=== PATIENT | female | born 1985 | race Caucasian/White ===

== ENCOUNTER 2016-10-21 17:25 | Emergency (ER) | payer SELFPAY ==
[2016-10-21 17:35] VITALS: BP 123/60; PULSE 90; RESP 20; TEMP 97.8; O2SAT 98
[2016-10-21] MEDS ORDERED: Naproxen 500 MG TAB PO ONE ×2 (17:40→18:08)
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
--- NOTE | 2016-10-22 10:51 | RAD ---
PROCEDURE: Left Knee Radiographs. HISTORY: Pain. COMPARISON: None. FINDINGS: BONES: Three views were obtained. No fracture is seen. No lytic process is noted. JOINTS: Mild degenerative changes are seen in the medial compartment and patellofemoral region. JOINT EFFUSION: None. OTHER FINDINGS: No chondrocalcinosis is seen. IMPRESSION: Mild degenerative changes. No fracture.
== END 2016-10-21 19:02 | disposition home or self-care (01) ==
LOC: H.ER 17:25
DX: M25.561 Pain in right knee (principal)

== ENCOUNTER 2017-07-13 10:58 | Inpatient (IN) | payer MEDICAID, OTHER ==
[2017-07-13 12:21] VITALS: BMI 54.8
[2017-07-13] MEDS ORDERED: Oxytocin 30 units/LR 500ML 30 UNIT/500 ML BAG IV SCH ×2 (12:30→16:35)
[2017-07-13] MEDS: Lactated Ringer's 1,000 ML IV SCH ×2 (12:45→13:45)
[2017-07-13] MEDS ORDERED: ePHEDrine 50 mg/ml Inj ONE (12:53)
[2017-07-13 13:03] LABS: BASO # 0.1 K/uL (0.0-0.2); BASO % 0.7 % (0.0-2.0); EOS # 0.1 K/uL (0.0-0.7); EOS % 0.7 % (0.0-4.0); HEMATOCRIT 37.3 % (34.0-47.0); LYMPH # 1.9 K/uL (1.0-4.3); LYMPH % 15.4 % (20.0-40.0); MEAN CELL VOLUME 85.2 fl (81.0-99.0); MEAN CORPUSCULAR HEMOGLOBIN 27.7 pg (27.0-31.0); MEAN CORPUSCULAR HGB CONC 32.6 g/dL (33.0-37.0); MONO # 0.7 K/uL (0.0-0.8); MONO % 5.4 % (0.0-10.0); NEUT # 9.4 K/uL (1.8-7.0); NEUT % 77.8 % (50.0-75.0); NRBC % 0.1 % (0.0-0.0); RED CELL DISTRIBUTION WIDTH 14.5 % (11.5-14.5); WHITE BLOOD COUNT 12.1 K/uL (4.8-10.8)
[2017-07-13 13:09] LABS: BILIRUBIN,TOTAL 0.8 mg/dl (0.2-1.3); CARBON DIOXIDE 22 mmol/L (22-30); CHLORIDE 106 mmol/L (98-107); GFR AFRICAN-AMERICAN > 60; GLUCOSE,RANDOM 85 mg/dL (65-105); SODIUM 139 mmol/l (132-148)
[2017-07-13 13:17] LABS: ALB/GLOB RATIO 0.9 (1.0-2.1); ALKALINE PHOSPHATASE 186 U/L (38-126); ALT/SGPT 59 U/L (9-52); AST/SGOT 64 U/L (14-36); BLOOD UREA NITROGEN 11 mg/dl (7-17); POTASSIUM 4.8 MMOL/L (3.6-5.0); TOTAL PROTEIN 7.9 G/DL (6.3-8.2)
[2017-07-13] MEDS ORDERED: Morphine 1 mg/ml preservative-free Inj(Duramorph) ONE (13:36)
[2017-07-13] MEDS ORDERED: Bupivacaine HCl/Epi 0.5% 1:20000 30 ML SOL IJ ONE (15:49)
[2017-07-13] MEDS ORDERED: Oxycodone/Acetaminophen 5/325 mg Tab PO PRN ×4 (16:15→20:10)
[2017-07-13] MEDS ORDERED: ceFAZolin IV 2 gm in Dextrose 2 GM/50 ML BAG IVPB ONE ×2 (17:00→20:10)
[2017-07-14 07:45] LABS: HEMATOCRIT 31.3 % (34.0-47.0); MEAN CELL VOLUME 84.9 fl (81.0-99.0); MEAN CORPUSCULAR HEMOGLOBIN 27.8 pg (27.0-31.0); MEAN CORPUSCULAR HGB CONC 32.8 g/dL (33.0-37.0); RED CELL DISTRIBUTION WIDTH 14.8 % (11.5-14.5)
--- NOTE | 2017-07-14 08:01 | OBADHP ---
Datetime: 07/13/2017 12:19 Admit Comment, IP Provider: 32 y/o F at 38.4 weeks GA by 3rd trimester US, presenting with uterine CTX that began this morning while taking a shower. Contraction are very painful, every _5 mi ns and increasing in intensity rapidly. NO LOF or vaginal bleeding. LMP 11/19/16. Pt started PNC on 0 04/24/17 at _25 weeks GA. Pt denies fever, headache, CP, SOB, urinary complaints or visual disturbance s. NKDA OBHx: 3 C/S, 2 induced abortions and 1 spontaneous abortions. PMHx: Obesity. PSHx: C/S x3, Cholecystectomy. FHx: NC SHx: No tobacco, alcohol or rec drugs. A/P: 32 y/o F w/ IUP at 38.4 weeks GA. -Admit to L_D unit. -NPO -Initiate protocol. Case discussed with Dr Gay, OB manager environmental health and safety Lee PGY-1 Extremities - PN: Normal Back - PN: Normal Breast - PN: Normal Lungs - PN: Normal Heart - PN: Normal Thyroid - PN: Normal Neurologic - PN: Normal HEENT - PN: Normal General - PN: Normal FHR - Baseline A Provider: 140 Membranes, Provider: Intact Gestation - Est Wks by US: 38.4 Pool Provider: Negative IP Chief Complaint: Uterine contractions NICHD Variability Prov Fetus A: Moderate 6-25bpm NICHD Accel Fetus A IP Provider: [id number] FHR Category Provider Fetus A: Category I Dilatation, Provider: 0 Effacement, Provider: 0 Genitourinary Exam: Normal DTRs - PN: Normal EGA AdmitDate IP: 38.4 IP Adm Impression: Term, intrauterine IP Admit Plan: Admit to unit; Observation/Evaluation
--- NOTE | 2017-07-14 08:08 | OBDS ---
DELIVERY PERSONNEL Delivery Doctor: Harjinder Gay MD Scrub Nurse: Deisy Ryan OBT Procurement Analyst: Tameka David RN Anesthesiologist: MD josé miguel Blanket Washer: Varghese Forman MD Resident: MD susan MATERNAL INFORMATION Delivery Anesthesia: Spinal Medications in Delivery: pitocin 30 mu Estimated Blood Loss (ml): 800 Placenta Cultured: No Maternal Complications: None RN Comments: Atraumatic repeat delivery with BTL Viable babyboy noted with lusty cry. nfa nt cared for by Dr. Groves APGARs 8/9 assigned infant tolerated delivery well. Mother tolerated deli very well. BTL completed. Unable to initiate Skin to skin due to abdomen taped over gown making upp er chest area unaccessible. Mother and infant recoverying well. Provider Comments: Low flap transverse section, bilateral tubal ligation. Patient viable infant male with Apgars of 8 and 9 at one and 5 minutes respectively. Normal uterus , normal tubes and ovaries bilaterally. Bilateral tubal ligation via bilateral Raceland procedure. Estimated blood loss 800 mL Fluids 1600 mL lactated Ringer's Urine output 200 mL of clear urine No complications LABOR SUMMARY EDC: 07/23/2017 00:00 No. Babies in Womb: 1 Attempted: No Labor Anesthesia: spinal LABOR INFORMATION Reason for Induction: Not Applicable Onset of Labor: 07/13/2017 09:30 Oxytocin: N/A Group B Beta Strep: Positive Antibiotics # of Doses: 1 Antibiotics Time of Last Dose: 1430 Steroids Given: None Reason Steroids Not Administered: Not Applicable Other Reason Not Administered: not required MEMBRANES Membranes Rupture Method: Spontaneous Rupture of Membranes: 07/13/2017 15:34 Length of Rupture (hrs): 0.02 Amniotic Fluid Color: Clear Amniotic Fluid Amount: Small Amniotic Fluid Odor: None STAGES OF LABOR Stage 3 hrs: 0 Stage 3 min: 1 Total Time in Labor hrs: 6 Total Time in Labor min: 6 CSECTION DELIVERY Primary Indication: > 2 Previous CSections CSection Urgency: Emergency CSection Incidence: Repeat CSection Incision: Lower Uterine Transverse Sterilization Procedure: Sarai BABY A INFORMATION Delivery Date/Time: 07/13/2017 15:35 Method of Delivery: Born in Route : No : N/A Forceps: N/A Vacuum Extraction: N/A Shoulder Dystocia : No SHOULDER DYSTOCIA BABY A Infant Delivery Date/Time: 07/13/2017 15:35 PRESENTATION/POSITION BABY A Presentation: Cephalic Cephalic Presentation: Vertex Vertex Position: Left Occipital Anterior Breech Presentation: N/A PLACENTA INFORMATION BABY A Placenta Delivery Time : 07/13/2017 15:36 Placenta Method of Delivery: Manual Removal Placenta Status: Delivered SCORES BABY A Heart Rate 1 min: >100 bpm Resp Effort 1 min: Good Cry Reflex Irritability 1 min: Cough or Sneeze or Pulls Away Muscle Tone 1 min: Some Flexion of Extremities Color 1 min: Body [place], Extremities Blue Resuscitation Effort 1 min: N/A SCORE 1 MIN: 8 Heart Rate 5 min: >100 bpm Resp Effort 5 min: Good Cry Reflex Irritability 5 min: Cough or Sneeze or Pulls Away Muscle Tone 5 min: Active Motion Color 5 min: Body [place], Extremities Blue Resuscitation Effort 5 min: N/A SCORE 5 MIN: 9 INFORMATION BABY A Gestational Age at Delivery: 38.0 Gestational Status: Term Outcome : Liveborn Infant Condition : Stable Sex: Male IDENTIFICATION/MEDS BABY A ID Band Number: [id number] ID Band Location: Left Leg; Left Arm WEIGHT/LENGTH BABY A Infant Birthweight (gms): 3600 Infant Weight (lb): 7 Infant Weight (oz): 15 CORD INFORMATION BABY A No. Cord Vessels: 3 Nuchal Cord : N/A Cord Blood Taken: No Infant Suction: Mouth; Nose ASSESSMENT BABY A Complications: None Physical Findings at Delivery: Within Normal Limits Infant Respirations: Appears Normal Serology Technician/ALS Called : No Infant Care By: Mallory Winter Transferred To: Nursery
--- NOTE | 2017-07-14 08:59 | OBPPN ---
Datetime: 07/14/2017 07:15 PP Pain Prov: Within normal limits PP Nausea Prov: Denies PP Flatus Prov: Yes PP BM Prov: No PP Heart Prov: Normal PP Lungs Prov: Normal PP Abdomen/Uterus Prov: Normal PP Lochia Prov: Normal PP Vulva/Perineum Prov: Normal PP CVA Tenderness Prov: Normal PP Extremities Prov: Normal PP Impression Prov: Normal progression PP Plan Prov: Continue present management PP Progress Note Prov: POD 1 32 y/o now seen and examined at bedside. Pt had an uneventful overnight. Pt reports pain in the area and its controlled with pain medications. Pt reports passing gas per rectum and no BM yet. Has bianchi in place. Pt is tolerating PO diet well. Denies dizziness, chest pain, dyspnea , nausea, vomiting or calf pain. Pt desires circumcision for the baby. Physical Exam: General: A_O, resting comfortably in bed, NAD, morbidly obese HEENT: oral mucosa moist. Lungs: CTA B/L, no wheezing, rhonchi or rales CVS: RRR, S1, S2 NL ABD: ND, +BS; Incision: Has dressing in place. Dressing looks clean and dry. No discharge or serosanguinous flui ds seen over the dressing. EXT: no edema, no calf tenderness Neuro/psych: AAOX3 Assessement: 32 yo s/p , doing well on POD#1 Obesity Plan: D/C IV fluids, advance to regular diet as tolerated. D/C bianchi this morning Lovenox 40 mg SC daily for DVT prophylaxis Ibuprofen and percocet for pain management Colace 100 mg BID for constipation. Encourage and ambulatory Anticipate discharge to home on 07/16/17. Sultan Car, PGY1 The patient was seen with the resident I agree with the note
--- NOTE | 2017-07-14 10:19 | OP ---
PROCEDURE DATE: 07/13/2017 PREOPERATIVE DIAGNOSES: Prior section x3, early labor, morbid obesity. POSTOPERATIVE DIAGNOSES: Prior section x3, early labor, morbid obesity. OPERATION PERFORMED: Repeat low-flap transverse section via Pfannenstiel incision, bilateral tubal ligation in Woodruff fashion. SURGEON: Varghese Gay MD. TYPE OF ANESTHESIA: Spinal. OPERATIVE FINDINGS: Viable infant with Apgars of 8 and 9 at one and five minutes respectively. Normal uterus, normal tubes and ovaries bilaterally. IV FLUID INTAKE: 1600 mL lactated Ringer's. ESTIMATED BLOOD LOSS: 800 mL. URINE OUTPUT: 200 mL of clear urine at the end of procedure. COMPLICATIONS: None. DESCRIPTION OF PROCEDURE: The patient was taken to the operating room where spinal anesthesia was found to be adequate. The patient was prepped and draped in normal sterile fashion in the dorsal supine position with a leftward tilt. A Pfannenstiel skin incision was made with a scalpel. This was carried down through to the underlying layer of fascia with the scalpel. Midline defect was made in the fascial layer with the scalpel. The fascial incision was then extended bilaterally with curved Rosenbaum scissors. The fascial layer was from the underlying rectus muscles both bluntly and sharply with curved Rosenbaum scissors. The rectus muscles were at the midline. The peritoneum was then identified, tented up with the Angelina clamps x2, entered sharply with Metzenbaum scissors. This peritoneal incision was then extended superiorly and inferiorly with good visualization of the urinary bladder. Bladder blade was inserted into the abdomen. The vesicouterine peritoneum was then identified, tented up with the Angelina clamps x2 and entered sharply with the Metzenbaum scissors. This peritoneal incision was then extended bilaterally with Metzenbaum scissors. The bladder flap was created digitally. The Amenia retractors were placed over the urinary bladder. The uterus was incised with a scalpel. The uterine incision was extended bilaterally bluntly. The Amenia retractors were placed over the urinary bladder. The uterus was incised with a scalpel. The infant's head was delivered atraumatically. Nose and mouth were suctioned with a bulb suction. The remainder of the infant was delivered without complication. The uterine incision was repaired with 0 Vicryl in a running, locked fashion. A second layer of the same suture was used to imbricate the first and to obtain an excellent hemostasis. Reinspection of the uterine incision proved excellent hemostasis. Attention was then turned to the fallopian tubes. The fallopian tubes were grasped with Emerson clamps bilaterally, sutured ligated with 2-0 chromic x2 bilaterally, an approximately 3 cm portion of the tube was removed bilaterally. Tubal site pedicles were electrocauterized to obtain hemostasis. Reinspection of fallopian tube pedicles were found to be hemostatic. The abdomen and pelvis were irrigated with copious amounts of warm normal saline. Reinspection of all surgical sites proved hemostasis. All instruments were removed from the patient. The peritoneal layer was closed with a running stitch of 2-0 chromic. The rectus muscles were reapproximated with a running stitch of 2-0 chromic. The fascial layer was closed with a running stitch of 0 PDS. The subcutaneous tissue was closed with a running stitch of 3-0 plain. The skin was closed with shana. The patient tolerated the procedure well. All sponge, lap count, needle counts were correct x2. The patient was given 3 g of Ancef just prior to the beginning of the procedure. There were no complications. The patient was taken to the recovery room in awake and stable condition. Varghese Gay MD
[2017-07-14] MEDS ORDERED: Enoxaparin 40 mg Syringe SC SCH ×2 (15:00)
[2017-07-14] MEDS: Oxycodone/Acetaminophen 5/325 mg Tab PO PRN ×2 (16:41→21:58)
[2017-07-15] MEDS: Oxycodone/Acetaminophen 5/325 mg Tab PO PRN ×4 (02:40→16:21)
[2017-07-15] MEDS ORDERED: Enoxaparin 40 mg Syringe SC SCH (15:00)
[2017-07-16] MEDS: Oxycodone/Acetaminophen 5/325 mg Tab PO PRN ×3 (00:11→08:30)
--- NOTE | 2017-07-16 18:47 | OBDCSUM ---
Datetime: 07/16/2017 07:30 Discharged to, Provider: Home Follow up at, Provider: [employer] Disch Instr Activity: May be up to bathroom; May be up for meals; May Shower Disch Instr Diet: Regular Discharge Instructions, Provider: Routine instructions given Discharge Diagnosis, Provider: Term Delivered Discharge Time: 07/16/2017 12:55 Follow up in weeks, Provider: 1 week Disch Referrals: None Contraception discussed, Prov: Yes Disch Activity Restrictions: No exercising; No lifting; Minimize stair-climbing; No sexual activity; Nothing in vagina - [place], tampons, douche Discharge Comment, Provider: DOA: 07/13/17 EGA: 38.4 weeks Diagnosis: term PRisk factors: Obesity summary of : , uncomplicated L_D summary: DOL: 07/13/17 at 15:35, uncomplicated NB: male : 8/9 Weight: 3600g PP summary: No serious complications during PP. Lochia= menses, mild pain, controlled with medications, incisi on I/D/C suture in place Rubella immune blood type: B+ CBC pp: .231.3 Discharge Date 07/16/17 at 10:00AM Discharge Instructions: -encourage -percocet/Ibuprofen for pain PRN -Colace for constipation -Ambulate as tolerated -continue PNV 1 tab/day -f/u NB visit and PP visit Echols PGY 1 Agree with above Contraception after Delivery: Undecided
--- NOTE | 2017-07-16 18:50 | OBPPN ---
Datetime: 07/15/2017 06:19 PP Pain Prov: Within normal limits PP Nausea Prov: Denies PP Flatus Prov: Yes PP BM Prov: Yes PP Heart Prov: Normal PP Lungs Prov: Normal PP Abdomen/Uterus Prov: Normal PP CVA Tenderness Prov: Normal PP Extremities Prov: Normal PP C/S Incision Prov: Normal PP Impression Prov: Normal progression PP Plan Prov: Continue present management PP Progress Note Prov: POD 2 32 y/o now seen and examined at bedside. Pt had an uneventful overnight. Pt reports pain in the area and its controlled with pain medications. Pt reports passing gas per rectum and had BM last night. Voiding w/ minimal blood noted. Pt is tolerating PO diet well. Denies dizziness, chest pain, dyspnea, nausea, vomiting or calf pain. Physical Exam: General: A_O, resting comfortably on the chair, NAD, morbidly obese HEENT: oral mucosa moist. Lungs: CTA B/L, no wheezing, rhonchi or rales CVS: RRR, S1, S2 NL ABD: ND, +BS; Incision: shana intact. Wound looks clean, dry and intact. No surrounding erythema or swelling s een. No signs of infection. EXT: no edema, no calf tenderness Neuro/psych: AAOX3 Assessement: 32 yo s/p , doing well on POD#2 Morbid Obesity Plan: Continue regular diet as tolerated Lovenox 40 mg SC daily for DVT prophylaxis Ibuprofen and percocet for pain management Colace 100 mg BID for constipation. Encourage and ambulatory Anticipate discharge to home tomorrow. Sultan Car, PGY1 Vital Signs Provider PP: Reviewed
[2017-07-16 18:59] VITALS: BP 109/70; PULSE 77; RESP 16; TEMP 98.2; O2SAT 100
== END 2017-07-16 12:53 | disposition home or self-care (01) | DRG 371 ==
LOC: H.EROB 10:58 → H.EROB2 10:58 → H.EROB 12:23 → H.OB/GYN 19:45
PROVIDERS: ADMIT Obstetrics & Gynecology; ATTEND Obstetrics & Gynecology
PROC: 10D00Z1 Extraction of Products of Conception, Low, Open Approach (ICD-10-PCS; principal; 2017-07-13)
PROC: 0UB70ZZ Excision of Bilateral Fallopian Tubes, Open Approach (ICD-10-PCS; 2017-07-13)
PROC: 4A1HXCZ Monitoring of Products of Conception, Cardiac Rate, External Approach (ICD-10-PCS; 2017-07-13)
DX: O34.211 Maternal care for low transverse scar from previous cesarean delivery (principal); E66.01 Morbid (severe) obesity due to excess calories; O99.214 Obesity complicating childbirth; O99.820 Streptococcus B carrier state complicating pregnancy; Z68.43 Body mass index [BMI] 50.0-59.9, adult; Z3A.38 38 weeks gestation of pregnancy; Z37.0 Single live birth; Z30.2 Encounter for sterilization

== ENCOUNTER 2018-02-07 10:36 | Emergency (ER) | payer MEDICAID ==
[2018-02-07 10:36] VITALS: BMI 54.8
[2018-02-07 10:42] VITALS: BP 145/90; PULSE 78; TEMP 98.1
[2018-02-07 11:01] VITALS: RESP 17; O2SAT 100
--- NOTE | 2018-02-07 11:21 | ED PDOC ---
HPI: CCC, URI, Sore Throat Time Seen by Provider: 02/07/18 11:19 Chief Complaint (Nursing): ENT Problem Chief Complaint (Provider): LEFT SIDED NECK SWELLING History Per: Patient (32 Y/O FEMALE HERE FOR EVALUATION OF LEFT SIDED NECK SWELLING/JAW SWELLING NOTED AFTER EATING TODAY. DENIES ANY FEVERS OR CHILLS. NOTES MILD SORE THROAT WITH SWALLOWING.) Past Medical History Reviewed: Historical Data, Nursing Documentation, Vital Signs Vital Signs: Last Vital Signs Temp 98.1 F 02/07/18 10:59 Pulse 78 02/07/18 10:59 Resp 17 02/07/18 10:59 BP 145/90 02/07/18 10:59 Pulse Ox 100 02/07/18 10:59 - Medical History PMH: Denies: Depression, Diabetes, HTN - Surgical History Surgical History: Cholecystectomy, - Family History Family History: States: Unknown Family Hx - Home Medications Home Medications: Ambulatory Orders Medication Instructions Recorded Vit No.126/Iron/Folic 1 tab PO DAILY MDD 1 tab 07/13/17 [Classic Tablet] Docusate [Colace] 100 mg PO BID #60 cap 07/16/17 Ferrous Sulfate [Feosol] 325 mg PO BID #60 tab 07/16/17 Ibuprofen [Motrin Tab] 600 mg PO Q6H #30 tab 07/16/17 oxyCODONE/Acetaminophen [Percocet 1 tab PO Q4 PRN #20 tab 07/16/17 5/325 mg Tab] Amoxicillin/Clavulanate [Augmentin 1 tab PO BID #14 tab 02/07/18 875 MG-125 MG] - Allergies Allergies/Adverse Reactions: Allergies Allergy/AdvReac Type Severity Reaction Status Date / Time No Known Allergies Allergy Verified 10/21/16 17:32 Review of Systems ROS Statement: Except As Marked, All Systems Reviewed And Found Negative Physical Exam - Reviewed Nursing Documentation Reviewed: Yes Vital Signs Reviewed: Yes - Physical Exam Appears: Positive for: Well, Non-toxic, No Acute Distress Head Exam: Positive for: ATRAUMATIC, NORMAL INSPECTION, NORMOCEPHALIC Skin: Positive for: Normal Color, Warm, DRY Eye Exam: Positive for: EOMI, Normal appearance, PERRL ENT: Negative for: Normal ENT Inspection (SUBMANDIBULAR MINIMAL SWELLING NOTED. LEFT CERVICAL SWELLING NOTED) Neck: Positive for: Normal, Painless ROM Cardiovascular/Chest: Positive for: Regular Rate, Rhythm Respiratory: Positive for: CNT, Normal Breath Sounds Gastrointestinal/Abdominal: Positive for: Normal Exam, Soft Back: Positive for: Normal Inspection Extremity: Positive for: Normal ROM Neurologic/Psych: Positive for: Alert, Oriented - ECG O2 Sat by Pulse Oximetry: 100 - Progress ED Course And Treament: D/W PATIENT CT NECK EVALUATION FOR POSSIBLE PAROTID GLAND OBSTRUCTION. PATIENT UNWILLING TO STAY FOR EXAM. WILL GIVEN ENT REFERRAL/ANTIBIOTICS. Disposition - Clinical Impression Clinical Impression: Parotid gland fullness - Patient ED Disposition Is Patient to be Admitted: No - Disposition Referrals: Luis Negro MD [Staff Provider] - Disposition: Routine/Home Disposition Time: 11:22 Condition: FAIR Prescriptions: Amoxicillin/Clavulanate [Augmentin 875 MG-125 MG] 1 tab PO BID #14 tab Instructions: Sore Throat, Adult (DC)
== END 2018-02-07 11:27 | disposition home or self-care (01) ==
LOC: H.ER 10:36
DX: K11.8 Other diseases of salivary glands (principal)